=== PATIENT | male | born 1965 | race Caucasian/White ===

== ENCOUNTER → 2017-07-03 | Outpatient (CLI) | payer MEDICAID ==
[~2017-07-03] MED LIST: AZATHIOPRINE50 MG PO; BUSPIRONE HCL10 MG PO; KEFLEX 500MG.500 MG PO; PRILOSEC10 MG PO
[2017-07-03 08:20] LABS: HEMOGLOBIN 14.7 g/dL (14.1-18.0); LYMPH # 1.5 K/mm3 (0.7-4.5); LYMPH % 38.6 % (10-50)
[2017-07-03 09:40] LABS: BUN 11 mg/dL (7-18)
[2017-07-03 09:42] LABS: GFR (ESTIMATED) 79 ML/MIN (>60)
[2017-07-09 13:43] LABS: QuantiFERON Incubation CLIENT INCUBATED
== END ==
LOC: LAB 07:56
PROVIDERS: Internal Medicine
DX: R12 Heartburn (principal)